=== PATIENT | male | born 1985 | race Caucasian/White ===

== ENCOUNTER 2017-03-03 12:31 | Emergency (ER) | payer MEDICARE, MEDICAID ==
[~2017-03-03] VITALS: Ht 175.3 cm; Wt 117.9 kg
[~2017-03-03 12:31] MED LIST: AMOXICILLIN 50500 MG PO; AZITHROMYCIN250 MG PO; BACLOFEN 10MG T10 MG FT; COMBIVENT INH14.7 GM IN; DARVOCET-N 1001 EACH PO; DIGOXIN0.25 MG NG; FLEXERIL10 M1 PO; FLEXERIL10 MG PO; IBU-8800 MG PO; LIDOCAINE VISC100 M1 TP; LYRICA 75 MG OR; MEDROL 4MG. DOSE4 MG PO; NEURONTIN 300M300 MG PO; PREDNISONE 20MG20 MG PO; ROXICET 325 MG500 ML PO; VICODIN 5/500 T1 TAB PO; VOLTAREN75 MG PO; ZIAC 5 MG-6.251 TAB PO
--- NOTE | 2017-03-03 12:56 | Emergency Room Report ---
History of Present Illness Time Seen by 1252 Presenting Problem in Triage Pt arrived:Walked Presenting Problem:PT REPORTS LOWER BACK PAIN X3 DAYS. PT REPORTS "PULLING" PAIN. REPORTS PAIN STARTED AFTER MOWING THE YARD. 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 N Clinical Suspician of Infection? N Mental Status: 1 - Regular (Normal Baseline) Sepsis Risk:Low Sepsis Risk Have you (or family members/close friends) recently traveled outside the [place]? N If Yes, where/when: Have you had exposure to infectious disease within the past month? N TB? Other? Specify: Comment The patient complains an acute exacerbation to chronic back pain. He has had back surgery in 2010 for stenosis and disc problems. Since then he has also had epidural injections and "had the nerves burned". He currently sees a back specialist in [place]. He says that he exacerbated his back problems by him mowing the yard over the weekend and has had increased pain since Thursday. The pain is in the upper lumbar and lower thoracic area. He has chronic leg pain which is unchanged. No new numbness or weakness either. No loss of bowel or bladder control. He says when he gets like this sometimes they have to start a steroid pack. Is on Vicoprofen at home. ALLERGIES Coded Allergies: No Known Allergies (10/23/15) Home Medications Reported Medications Bisoprolol Fumarate/Hydrochl (Ziac 5 Mg-6.25 Mg) 1 TAB PO DAILY DIGOXIN (Digox) 0.25 MG NG DAILY Albuterol-Ipratropium (Combivent Inhaler) 2 PUFFS IN TID History Medical History General CAD? No Angina: No PR: No Hypertension? Yes Hyperlipidemia? No CHF? No DVT? No PE? No COPD? No Asthma? Yes Anemia? No GERD? Yes Gastric ulcers? No GI Bleed? No Hernia? No Thyroid Problems? No Hypothyroidism? No CVA? No Seizures? No Diabetes? No Renal Insuffiency? No End Stage Renal Disease? No UTI? No Stones? No BPH? No GB Disease: Yes Nephritic Syndrome? No Asplenia? No Hepatitis? No Sickle Cell Disease? No Arthritis? No Migraines? No Cataracts? No Glaucoma? No MRSA? No HIV? No TB? No Anxiety? No Depression? No Cancer? No More? Yes Additional hx: SPINAL STENOSIS Immunization Hx DT/Tetanus < 1 YR AGO Surgical Hx Previous Surgery?Y RIGHT KNEE [facility] Social History Smoking Hx Smoker: Current Every Day Smoker Tobacco: Yes Type Cigarettes Packs/day < 1 Pack Are you/the child exposed to second-hand smoke: Yes Alcohol Alcohol: No Review of Systems All Other Systems Reviewed and Negative Constitutional denies fever Musculoskeletal back pain Psychiatric/Neurological see HPI Physical Exam Vital Signs Vital Signs Date Time Temp Pulse Resp B/P Pulse O2 O2 Flow FiO2 Ox Delivery Rate 03/03 1237 98.4 70 16 154/93 96 General Appearance normal appearance Respiratory Status No: respiratory distress. Cardiovascular normal peripheral pulses Back Lower lumbar scar. Mild tenderness of lower thoracic and upper lumbar midline. Neurologic alert, no motor/sensory deficits Reflexes Comment 1+ patella bilaterally symmetric. 0+ Achilles bilaterally symmetric. Medical Decision Making LABS/Meds/Orders Pt receiving controlled substance in ED? No Darinel was queried for this patient? Yes Reference #: [id number] Comment 5 rxs. last rx 60 vicoprofen 7.5mg on 02/16/17. Results/Orders Current Medication Orders Sig/Coral Start time Last Medication Dose Route Stop Time Status Admin Dexamethasone Sodium 8 MG ONCE ONE 03/03 1330 AC Phosphate IM 03/03 1331 Progress - 1:24 PM: I estimate there is LOW risk for ABDOMINAL AORTIC ANEURYSM, ACUTE AORTIC DISSECTION, CAUDA EQUINA SYNDROME, EPIDURAL MASS LESION, OR CORD COMPRESSION, thus I consider the discharge disposition reasonable. Departure Departure Disposition DC Home or Self Care(routine) Clinical Impression Primary Impression: Low back pain Qualifiers: Chronicity: unspecified Back pain laterality: midline Sciatica presence: without sciatica Qualified Code: M54.5 - Low back pain Condition STABLE Patient Instructions DI for Low Back Pain Additional Instructions Continue Vicoprofen for pain. Additional instructions for BACK PAIN: See your physician as soon as possible for further evaluation. Return immediately if back pain becomes intolerable, or if fever, numbness or weakness of your legs, loss of control of your bowels or bladder. Prescriptions Current Visit Scripts Methylprednisolone (Medrol Dose Kun) 4 MG PO UD #1 KUN TAKE DIRECTED ON PACKAGING ED Critical Care Critical Care No at 1320
--- NOTE | 2017-03-03 12:56 | Emergency Room Report ---
History of Present Illness Time Seen by 1252 Presenting Problem in Triage Pt arrived:Walked Presenting Problem:PT REPORTS LOWER BACK PAIN X3 DAYS. PT REPORTS "PULLING" PAIN. REPORTS PAIN STARTED AFTER MOWING THE YARD. 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 N Clinical Suspician of Infection? N Mental Status: 1 - Regular (Normal Baseline) Sepsis Risk:Low Sepsis Risk Have you (or family members/close friends) recently traveled outside the [place]? N If Yes, where/when: Have you had exposure to infectious disease within the past month? N TB? Other? Specify: Comment The patient complains an acute exacerbation to chronic back pain. He has had back surgery in 2010 for stenosis and disc problems. Since then he has also had epidural injections and "had the nerves burned". He currently sees a back specialist in [place]. He says that he exacerbated his back problems by him mowing the yard over the weekend and has had increased pain since Thursday. The pain is in the upper lumbar and lower thoracic area. He has chronic leg pain which is unchanged. No new numbness or weakness either. No loss of bowel or bladder control. He says when he gets like this sometimes they have to start a steroid pack. Is on Vicoprofen at home. ALLERGIES Coded Allergies: No Known Allergies (10/23/15) Home Medications Reported Medications Bisoprolol Fumarate/Hydrochl (Ziac 5 Mg-6.25 Mg) 1 TAB PO DAILY DIGOXIN (Digox) 0.25 MG NG DAILY Albuterol-Ipratropium (Combivent Inhaler) 2 PUFFS IN TID History Medical History General CAD? No Angina: No AL: No Hypertension? Yes Hyperlipidemia? No CHF? No DVT? No PE? No COPD? No Asthma? Yes Anemia? No GERD? Yes Gastric ulcers? No GI Bleed? No Hernia? No Thyroid Problems? No Hypothyroidism? No CVA? No Seizures? No Diabetes? No Renal Insuffiency? No End Stage Renal Disease? No UTI? No Stones? No BPH? No GB Disease: Yes Nephritic Syndrome? No Asplenia? No Hepatitis? No Sickle Cell Disease? No Arthritis? No Migraines? No Cataracts? No Glaucoma? No MRSA? No HIV? No TB? No Anxiety? No Depression? No Cancer? No More? Yes Additional hx: SPINAL STENOSIS Immunization Hx DT/Tetanus < 1 YR AGO Surgical Hx Previous Surgery?Y RIGHT KNEE [facility] Social History Smoking Hx Smoker: Current Every Day Smoker Tobacco: Yes Type Cigarettes Packs/day < 1 Pack Are you/the child exposed to second-hand smoke: Yes Alcohol Alcohol: No Review of Systems All Other Systems Reviewed and Negative Constitutional denies fever Musculoskeletal back pain Psychiatric/Neurological see HPI Physical Exam Vital Signs Vital Signs Date Time Temp Pulse Resp B/P Pulse O2 O2 Flow FiO2 Ox Delivery Rate 03/03 1237 98.4 70 16 154/93 96 General Appearance normal appearance Respiratory Status No: respiratory distress. Cardiovascular normal peripheral pulses Back Lower lumbar scar. Mild tenderness of lower thoracic and upper lumbar midline. Neurologic alert, no motor/sensory deficits Reflexes Comment 1+ patella bilaterally symmetric. 0+ Achilles bilaterally symmetric. Medical Decision Making LABS/Meds/Orders Pt receiving controlled substance in ED? No Darinel was queried for this patient? Yes Reference #: [id number] Comment 5 rxs. last rx 60 vicoprofen 7.5mg on 02/16/17. Results/Orders Current Medication Orders Sig/Coral Start time Last Medication Dose Route Stop Time Status Admin Dexamethasone Sodium 8 MG ONCE ONE 03/03 1330 AC Phosphate IM 03/03 1331 Progress - 1:24 PM: I estimate there is LOW risk for ABDOMINAL AORTIC ANEURYSM, ACUTE AORTIC DISSECTION, CAUDA EQUINA SYNDROME, EPIDURAL MASS LESION, OR CORD COMPRESSION, thus I consider the discharge disposition reasonable. Departure Departure Disposition DC Home or Self Care(routine) Clinical Impression Primary Impression: Low back pain Qualifiers: Chronicity: unspecified Back pain laterality: midline Sciatica presence: without sciatica Qualified Code: M54.5 - Low back pain Condition STABLE Patient Instructions DI for Low Back Pain Additional Instructions Continue Vicoprofen for pain. Additional instructions for BACK PAIN: See your physician as soon as possible for further evaluation. Return immediately if back pain becomes intolerable, or if fever, numbness or weakness of your legs, loss of control of your bowels or bladder. Prescriptions Current Visit Scripts Methylprednisolone (Medrol Dose Kun) 4 MG PO UD #1 KUN TAKE DIRECTED ON PACKAGING ED Critical Care Critical Care No at 1323
[2017-03-03] MEDS ORDERED: MEDROL 4MG. DOSE4 MG PO (13:25)
[2017-03-03 14:10] VITALS: BP 145/91
== END 2017-03-03 14:11 | disposition home or self-care (01) ==
LOC: ER 12:31
DX: M54.5 Low back pain (principal); I10 Essential (primary) hypertension; Z72.0 Tobacco use; K21.9 Gastro-esophageal reflux disease without esophagitis

== ENCOUNTER 2017-10-14 20:49 | Emergency (ER) | payer MEDICARE, MEDICAID ==
[~2017-10-14] VITALS: Ht 175.3 cm; Wt 108.9 kg
[2017-10-14] MEDS ORDERED: METFORMIN500 MG PO (21:06)
--- OUTSIDE RECORDS SUMMARY | 2017-10-14 21:15 | External Medical Summary Rpt | CCD ---
Author Author , FERMIN Organization [employer] Address Unknown Phone [email or web address] Care Team Providers Care Solar Crew Member Name Role Phone Clyde Lopes III, MD, Clyde Hernandez III, MD Purpose Continuity of Care Document - 12-05-2013 through 2016 Problems Code Diagnosis DOS Provider Status G47.33 OBSTRUCTIVE 01-28-2017 SLEEP APNEA (ADULT) (PEDIATRIC) 305.1 305.1 12-05-2013 [place] TOBACCO USE [facility] 401.9 401.9 [facility] 491.22 491.22 12-05-2013 [facility] BRONCHITIS WITH ACUTE BRONCHITIS 493.20 493.20 12-05-2013 [facility] ASTHMA, NOS M54.5 LOW BACK PAIN Allergies, Adverse Reactions, Alerts Type Allergy to substance Adverse Reaction to Substance Substance Reaction Severity NO KNOWN ALLERGIES Unknown Unknown Medications Na ND Rx Da Fi Fi Am Da Di Ph RX Ph St me C No te ll ll ou ys ag ar # ys at rm s nt no ma ic us Or Da si cy ia de te s n re d IP 00 01 0 No RA 48 -1 T- 70 3- Lo AL 20 20 ng BU 10 14 er T 1 0. Ac 5- ti 3( ve 2. 5) MG /3 ML Vital Signs 12-05-2013 17:46 Name Value Interpretat Reference Comment ion Range Body 98.4 [degF] Temperature BP 72 mm[Hg] Diastolic BP Systolic 128 mm[Hg] Heart 101 /min Rate/Pulse O2% 97 % Respiratory 20 /min Rate 12-05-2013 17:44 Name Value Interpretat Reference Comment ion Range Body 98.4 [degF] Temperature BP 72 mm[Hg] Diastolic BP Systolic 128 mm[Hg] Heart 101 /min Rate/Pulse Respiratory 20 /min Rate 12-05-2013 15:41 Name Value Interpretat Reference Comment ion Range O2% 96 % Encounters Encounter Start End Date Code Location Performer Type Date Emergency LAUREN Hernandez (ER) 4 15:54 4 17:46 [facility] Clyde Garcia
--- OUTSIDE RECORDS SUMMARY | 2017-10-14 21:15 | External Medical Summary Rpt | CCD ---
Demographics Preferred Language Cameroonian Marital Status Unknown Scientologist Affiliation Unknown Race Unknown Ethnic Group Unknown Author Author VIJAYA Address Unknown Phone [email or web address] Purpose Continuity of Care Document - through 2016
--- OUTSIDE RECORDS SUMMARY | 2017-10-14 21:15 | External Medical Summary Rpt | CCD ---
Author Author , FERMIN Organization [employer] Address Unknown Phone [email or web address] Care Team Providers Care Macadam Raker Name Role Phone Clyde Lopes III, MD, Clyde Hernandez III, MD Purpose Continuity of Care Document - 12-05-2013 through 2016 Problems Code Diagnosis DOS Provider Status G47.33 OBSTRUCTIVE 01-28-2017 SLEEP APNEA (ADULT) (PEDIATRIC) 305.1 305.1 12-05-2013 [place] TOBACCO USE [facility] 401.9 401.9 [facility] 491.22 491.22 12-05-2013 [facility] BRONCHITIS WITH ACUTE BRONCHITIS 493.20 493.20 12-05-2013 [facility] ASTHMA, NOS M54.5 LOW BACK PAIN [...] LAUREN Hernandez (ER) 4 15:54 4 17:46 [facility] Clyde Garcia
--- OUTSIDE RECORDS SUMMARY | 2017-10-14 21:15 | External Medical Summary Rpt | CCD ---
Demographics Preferred Language [place] Islander Marital Status Unknown Judaism Affiliation Unknown Race Unknown Ethnic Group Unknown Author Author VIJAYA Address Unknown Phone [email or web address] Purpose Continuity of Care Document - through 2016
--- OUTSIDE RECORDS SUMMARY | 2017-10-14 21:16 | External Medical Summary Rpt | CCD ---
Demographics Preferred Language Maldivian Marital Status Unknown Religion Affiliation Unknown Race Unknown Ethnic Group Unknown Author Author , VIJAYA CHRISTENSEN Address Unknown Phone Immunization Unable to retrieve immunization data due to connection failure with Immunization Registry. Please try again later.
--- OUTSIDE RECORDS SUMMARY | 2017-10-14 21:16 | External Medical Summary Rpt | CCD ---
Demographics Preferred Language Guatemalan Marital Status Unknown Restorationism Affiliation Unknown Race Unknown Ethnic Group Unknown Author Author , VIJAYA CHRISTENSEN Address Unknown Phone Immunization Unable to retrieve immunization data due to connection failure with Immunization Registry. Please try again later.
--- OUTSIDE RECORDS SUMMARY | 2017-10-14 21:17 | External Medical Summary Rpt ---
Author Author FERMIN Juarez, FERMIN Juarez Organization [employer] Address Unknown Phone Unavailable
--- NOTE | 2017-10-14 21:47 | RADIOLOGY REPORT PS360 ---
CT CERVICAL SPINE W/O CONT INDICATION: Neck pain following injury FELL AT HOME ORDERING PHYSICIAN: Ady Hodgson MD PATIENT AGE: 32 years COMPARISON: None TECHNIQUE: Axial images are obtained without contrast. Sagittal and coronal reformatted images are reviewed as well. FINDINGS: There is normal alignment. No cervical spine fracture or dislocation is evident. No prevertebral soft tissue swelling. Scattered small nodes are present in that. The lung apices are clear. Marily graph there is some minor fragmentation along the medial aspect of the head of the clavicle on the right superiorly consistent with an avulsion fracture age indeterminate. IMPRESSION: 1. No acute cervical spine fracture. 2. Small avulsion fracture of the head of the clavicle on the right age-indeterminate
--- NOTE | 2017-10-14 22:47 | Emergency Room Report ---
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 N Clinical Suspician of Infection? N Mental Status: 1 - Regular (Normal Baseline) Sepsis Risk:Low Sepsis Risk Have you (or family members/close friends) recently traveled outside the [place]? N If Yes, where/when: Have you had exposure to infectious disease within the past month? N TB? Other? Specify: Source patient, RN notes reviewed, family, old records Exam Limitations no limitations Comment slipped in bathroon this am and hit head with loc and hull Cardiac Chest Pain Chest pain indicative of cardiac No Timing/Duration this evening Severity moderate ALLERGIES Coded Allergies: No Known Allergies (10/23/15) Home Medications Reported Medications Bisoprolol Fumarate/Hydrochl (Ziac 5 Mg-6.25 Mg) 1 TAB PO DAILY DIGOXIN (Digox) 0.25 MG NG DAILY Albuterol-Ipratropium (Combivent Inhaler) 2 PUFFS IN TID Metformin HCL (Metformin) 500 MG PO BID History Medical History General CAD? No Angina: No AR: No Hypertension? Yes Hyperlipidemia? No CHF? No DVT? No PE? No COPD? No Asthma? Yes Anemia? No GERD? Yes Gastric ulcers? No GI Bleed? No Hernia? No Thyroid Problems? No Hypothyroidism? No CVA? No Seizures? No Diabetes? Yes Insulin Dependent: No Insulin Pump: No Home FSBS? No Renal Insuffiency? No End Stage Renal Disease? No UTI? No Stones? No BPH? No GB Disease: Yes Nephritic Syndrome? No Asplenia? No Hepatitis? No Sickle Cell Disease? No Arthritis? No Migraines? No Cataracts? No Glaucoma? No MRSA? No HIV? No TB? No Anxiety? No Depression? No Cancer? No More? Yes Additional hx: SPINAL STENOSIS Immunization Hx DT/Tetanus < 1 YR AGO Surgical Hx Previous Surgery?Y RIGHT KNEE SURGERY [facility] 12/03 [facility] 2010 Social History Smoking Hx Smoker: Current Every Day Smoker Tobacco: Yes Type Cigars Packs/day < 1 Pack Alcohol Alcohol: No Drugs none Review of Systems All Other Systems Reviewed and Negative Constitutional denies fever Eyes denies drainage ENT denies: ear discharge, nose discharge. Respiratory denies cough Cardiovascular denies palpitations Gastrointestinal denies diarrhea, denies vomiting Genitourinary denies: frequency. Musculoskeletal see HPI, denies joint swelling, neck pain Skin denies rash Psychiatric/Neurological see HPI, headache, denies seizure, other Physical Exam Vital Signs Vital Signs Date Time Temp Pulse Resp B/P Pulse O2 O2 Flow FiO2 Ox Delivery Rate 10/14 2238 97.8 91 18 165/87 96 10/14 2056 97.9 91 18 154/98 98 - WBC >12,000 or <4,000 or 10% bands? 2 or more SIRS Criteria Met? B/P: MAP:116 Creatinine >2.0? UA output<0.5ml/kg/hr for 2 hrs? Platelet count >100,000? Lactate >2.0mmol/1? INR >1.2 or PTT > than 60 sec? Evidence of Organ Dysfunction? Provider documented clinical suspician of infection? N Sepsis Criteria Count: 1 Sepsis Risk: Low Sepsis Risk General Appearance no apparent distress Eye Exam - bilateral eye PERRL, bilateral eye EOMI Ear, Nose, Throat normal ENT inspection Neck tender lateral Respiratory Status No: respiratory distress. Lung Sounds bilateral: lungs clear. 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 No Results/Orders Orders Procedure Date/time Status DIET-NOTHING BY MOUTH 10/[address] HEAD REQ 10/[address] HEAD W/O CONTRAST 10/[address] SCAN REQ 10/14 2112 Complete XRAY/CT/US XRAY/CT/US CT head, C-spine CT interpretation by discussed w/radiologist Time results known: 2245 CT Results no fracture seen Departure Departure Time of Disposition 2242 Disposition DC Home or Self Care(routine) Clinical Impression Primary Impression: Head contusion Qualifiers: Encounter type: initial encounter Contusion of head detail: unspecified part of head Qualified Code: S00.93XA - Contusion of unspecified part of head, initial encounter Secondary Impressions: Cervical strain, acute Qualifiers: Encounter type: initial encounter Qualified Code: S16.1XXA - Strain of muscle, fascia and tendon at neck level, initial encounter Condition STABLE Referrals Tamir Anton MD (Family) Patient Instructions DI for Concussion Additional Instructions see pcp as needed Discharge Counseling Counseled pt/family regarding diagnosis, test results, follow up needs ED Critical Care Critical Care No at 4465
[2017-10-14 22:59] VITALS: BP 165/87
--- NOTE | 2017-10-15 06:25 | RADIOLOGY REPORT PS360 ---
CT HEAD W/O CONTRAST HISTORY: Headache/pain following injury FELL AT HOME ORDERING PHYSICIAN: Ady Hodgson MD PATIENT AGE: 32 years COMPARISON: None TECHNIQUE: Axial images obtained without contrast. Brain and bone windows reviewed. FINDINGS: No midline shift, mass effect, intracranial hemorrhage, hydrocephalus, or extra-axial fluid collection is evident. Soft tissue thickening is noted in the right vertex consistent with contusion/laceration. No underlying calvarial fracture. The calvarium has an unremarkable appearance. No mastoid effusion. The visualized paranasal sinuses are unremarkable. IMPRESSION: 1. No acute intracranial findings. 2. Right vertex scalp contusion.
== END 2017-10-14 23:00 | disposition home or self-care (01) ==
LOC: ER 20:49
DX: S00.93XA Contusion of unspecified part of head, initial encounter (principal); S16.1XXA Strain of muscle, fascia and tendon at neck level, initial encounter; W01.0XXA Fall on same level from slipping, tripping and stumbling without subsequent striking against object, initial encounter; Y92.012 Bathroom of single-family (private) house as the place of occurrence of the external cause; I10 Essential (primary) hypertension; J45.909 Unspecified asthma, uncomplicated; K21.9 Gastro-esophageal reflux disease without esophagitis; E11.9 Type 2 diabetes mellitus without complications

== ENCOUNTER 2017-10-18 16:58 | Emergency (ER) | payer MEDICARE, MEDICAID ==
[~2017-10-18] VITALS: Ht 175.3 cm; Wt 113.4 kg
[~2017-10-18 16:58] MED LIST changes: +METFORMIN500 MG PO
--- OUTSIDE RECORDS SUMMARY | 2017-10-18 17:07 | External Medical Summary Rpt | CCD ---
Author Author , VIJAYA CHRISTENSEN Address Unknown Phone [email or web address] Immunization Name Date Rout CVX Reac Dose Comm Prov Is Faci e tion ent ider Refu lity Give sed n Infl 10-0 0.5 Hist PD20 No PD20 uenz 9-20 mL oric 255 255 a 17 al Quad Info rmat W/Pr ion es - Sour ce Unsp ecif ied Hep 08-2 42 999 Hist H149 No H149 B, 6-19 oric adol 96 al Info High rmat Ris ion - Sour ce Unsp ecif ied Hep 07-2 42 999 Hist H149 No H149 B, 4-19 oric adol 96 al Info High rmat Ris ion - Sour ce Unsp ecif ied MMR 07-2 Intr 3 999 Hist H149 No H149 4-19 amus oric 96 cula al r Info rmat ion - Sour ce Unsp ecif ied
--- OUTSIDE RECORDS SUMMARY | 2017-10-18 17:07 | External Medical Summary Rpt | CCD ---
Author Author , FERMIN Organization [employer] Address Unknown Phone [email or web address] Care Team Providers Care Saw Handle Assembler Name Role Phone Clyde Lopes III, MD, Clyde Hernandez III, MD Purpose Continuity of Care Document - 12-05-2013 through 2016 Problems Code Diagnosis DOS Provider Status G47.33 OBSTRUCTIVE 01-28-2017 SLEEP APNEA (ADULT) (PEDIATRIC) 305.1 305.1 12-05-2013 [place] TOBACCO USE [facility] 401.9 401.9 12-05-2013 [place] HYPERTENSIO [facility] NOS Hospital 491.22 491.22 12-05-2013 [facility] BRONCHITIS WITH ACUTE BRONCHITIS 493.20 493.20 12-05-2013 [facility] ASTHMA, NOS M48.061 SPINAL STENOSIS, LUMBAR REGION WITHOUT NEUROGENIC NICHOLE M50.90 CERVICAL DISC DISORDER, UNSP, UNSPECIFIED CERVICAL REGION M51.16 INTERVERTEB RAL DISC DISORDERS W RADICULOPAT HY, LUMBAR REGION M54.5 LOW BACK PAIN S00.93XA CONTUSION OF UNSPECIFIED PART OF HEAD, INITIAL ENCOUNTER S16.1XXA STRAIN OF MUSCLE, FASCIA AND TENDON AT NECK LEVEL, INIT Allergies, Adverse Reactions, Alerts Type Allergy to [...] LAUREN Hernandez (ER) 4 15:54 4 17:46 [facility] Clyde Garcia
--- OUTSIDE RECORDS SUMMARY | 2017-10-18 17:07 | External Medical Summary Rpt | CCD ---
Author Author , VIJAYA CHRISTENSEN Address Unknown Phone [email or web address] Immunization Name Date Rout CVX Reac Dose [...]
--- OUTSIDE RECORDS SUMMARY | 2017-10-18 17:07 | External Medical Summary Rpt | CCD ---
Demographics Preferred Language Eritrean Marital Status Unknown Confucianist Affiliation Unknown Race Unknown Ethnic Group Unknown Author Author VIJAYA Address Unknown Phone [email or web address] Purpose Continuity of Care Document - through 2016
--- OUTSIDE RECORDS SUMMARY | 2017-10-18 17:07 | External Medical Summary Rpt | CCD ---
Author Author , FERMIN Organization [employer] Address Unknown Phone [email or web address] Care Team Providers Care Sausage Cutter Name Role Phone Clyde Lopes III, MD, Clyde Hernandez III, MD Purpose Continuity of Care Document - 12-05-2013 through 2016 Problems Code Diagnosis DOS Provider Status G47.33 OBSTRUCTIVE 01-28-2017 SLEEP APNEA (ADULT) (PEDIATRIC) 305.1 305.1 12-05-2013 [place] TOBACCO USE [facility] 401.9 401.9 12-05-2013 [place] HYPERTENSIO [facility] NOS Hospital 491.22 491.22 12-05-2013 [facility] BRONCHITIS WITH ACUTE BRONCHITIS 493.20 493.20 12-05-2013 [facility] ASTHMA, NOS M48.061 SPINAL STENOSIS, LUMBAR [...] LAUREN Hernandez (ER) 4 15:54 4 17:46 [facility] Clyde Garcia
--- OUTSIDE RECORDS SUMMARY | 2017-10-18 17:07 | External Medical Summary Rpt | CCD ---
Demographics Preferred Language Belgian Marital Status Unknown Buddhism Affiliation Unknown Race Unknown Ethnic Group Unknown Author Author VIJAYA Address Unknown Phone [email or web address] Purpose Continuity of Care Document - through 2016
--- NOTE | 2017-10-18 17:24 | Urgent Treatment Center Report ---
History of Present Issue Date/Time Seen by Provider 10/18/17 2533 Visit Reason Pt arrived:Walked Presenting Problem:PT C/O LOWER BACK PAIN THAT GOES DOWN INTO HIS RIGHT LEG. ADVISES HE FELL ON THURSDAY IN THE BATHROOM. ALSO HAS A HX OF SPINAL STENOSIS Location if Accident: Onset of symptoms date/time:/ or onset unknown for:MEDICAL HX UNKNOWN Have you (or family members/close friends) recently traveled outside the [place]? N If Yes, where/when: Have you had exposure to infectious disease within the past month? TB? Other? Specify: c/o flare of chronic low back pain new today. PMHx of spinal stenosis and unknown lumbar surgery. Can't recall then but "years ago". Hasn't recently seen NS "because no need to" however his retired in Spring 2016 so he doesn't know if her office would continue to see him or not. PCP Sloane. Denies chronic pain meds or being a patient of a pain management practice. Reports he fell 4:30am Thursday (4 days ago). Got up to use restroom and slid on wet floor. Blacked out and didn't remember anything for some time later. Came to ER. Reports dx w/ concussion. No pain at that time so other than head, denies having any other imaging done. Worsening pain started this morning. Lower back with right LE weakness and tingling. hx of both LE doing this in the past and right is typically always worse then left. Pain 8/10. Hasn't taken anything to help today and other than repositioning frequently, hasn't tried anything else. Pain worse in any position too long and better w/ brief movement. Denies difficulty urinating, passing stool, incontinence or LE weakness more then his typical. Source patient Exam Limitations no limitations ALLERGIES Coded Allergies: No Known Allergies (10/23/15) Home Medications Reported Medications Bisoprolol Fumarate/Hydrochl (Ziac 5 Mg-6.25 Mg) 1 TAB PO DAILY DIGOXIN (Digox) 0.25 MG NG DAILY Albuterol-Ipratropium (Combivent Inhaler) 2 PUFFS IN TID Metformin HCL (Metformin) 500 MG PO BID History Medical History General CAD? No Angina: No [place]: No Hypertension? Yes Hyperlipidemia? No CHF? No DVT? No PE? No COPD? No Asthma? Yes Anemia? No GERD? Yes Gastric ulcers? No GI Bleed? No Hernia? No Thyroid Problems? No Hypothyroidism? No CVA? No Seizures? No Diabetes? Yes Insulin Dependent: No Insulin Pump: No Home FSBS? No Renal Insuffiency? No UTI? No Stones? No BPH? No GB Disease: Yes Nephritic Syndrome? No Asplenia? No Hepatitis? No Sickle Cell Disease? No Arthritis? No Migraines? No Cataracts? No Glaucoma? No MRSA? No HIV? No TB? No Anxiety? No Depression? No Cancer? No More? Yes Additional hx: SPINAL STENOSIS Immunization HX DT/Tetanus < 1 YR AGO Surgical Hx Previous Surgery?Y RIGHT KNEE SURGERY [facility]GERY [facility] 12/03 TONSILS 2010 Social History Smoking Hx Smoker: Never Smoker Tobacco: No Packs/day < 1 Pack Alcohol Alcohol: No Review of Systems All Other Systems Reviewed and Negative (as appropriate for CC) Constitutional denies fever, denies malaise Respiratory denies shortness of breath Gastrointestinal denies abdominal pain Genitourinary see HPI. Musculoskeletal see HPI Skin denies change in color, denies lesions, denies lumps Psychiatric/Neurological see HPI, denies headache Physical Exam Vital Signs Vital Signs Date Time Temp Pulse Resp B/P Pulse O2 O2 Flow FiO2 Ox Delivery Rate 10/18 1900 98.0 98 16 140/90 98 10/18 1750 16 10/18 1717 98.0 98 16 140/90 98 General Appearance mild distress (slow to change positions) Neck normal inspection, non-tender, supple, full range of motion Respiratory Status No: respiratory distress. Cardiovascular no peripheral edema Back normal inspection, bowel/bladder continent, gait abnormality (slow, shuffled, favors rt), strt leg raising(L)-NML, strt leg raising(R)-NML, vertebral tenderness (mid lumber, mild, no guarding), no lumbar region tenderness, mild right SI joint tenderness , slightly limited spinal rotation left and right, extension & lateral bending; most limited in spinal flexion due to pain Extremities non-tender (BLE), normal range of motion (BLE) Strength 5 Lower Ext (L), 5 Lower Ext (R) Neurologic alert, no motor/sensory deficits, oriented x 3 Reflexes DTR 2+ knee (R), 2+ knee (L) Skin intact, normal color, warm/dry Medical Decision Making LABS/Meds/Orders Pt receiving controlled substance in ED? No Results/Orders Current Medication Orders Sig/Coral Start time Last Medication Dose Route Stop Time Status Admin Ketorolac 60 MG ONCE ONE 10/18 1745 DC 10/18 Tromethamine IM 10/18 Ketorolac 0 .STK-MED ONE 10/18 1745 DC Tromethamine .ROUTE Orphenadrine Citrate 60 MG ONCE ONE 10/18 1745 DC 10/18 IM 10/18 Orphenadrine Citrate 0 .STK-MED ONE 10/18 1745 DC .ROUTE Orders Procedure Date/time Status LUMBAR SPINE 5 VIEWS 10/18 1738 Active XRAY/CT/US XRAY/CT/US XRAY L-spine XR interpretation by reviewed by me (w/ Dr. Johnny SANTIAGO MD) Xray Results retrolethesis and spinal straightening. Compared to a prior MRI 2 years ago (no prior xrays). retrolethesis at that time but unable to determine if better/worse. Dr. Turner says pt needs to follow up with PCP tomorrow Departure Departure Time of Disposition 1850 Disposition DC Home or Self Care(routine) Clinical Impression Primary Impression: Acute exacerbation of chronic low back pain Secondary Impressions: Fall Qualifiers: Encounter type: initial encounter Qualified Code: W19.XXXA - Unspecified fall, initial encounter Condition STABLE Referrals Sloane DUDLEY,Tamir (Family) Call in the morning and schedule a follow up appointment as a repeat MRI may be necessary if pain persist. In the meantime, if symptoms worsen, you can't urinate or have BM, having trouble controlling urine or bowels of the leg weakness or numbness suddenly worsen, follow up immediately Patient Instructions DI for Low Back Pain Additional Instructions * naproxen every 12 hours with meal as needed for pain/inflammation. * Remember you had a toradol shot, similiar anti-inflammatory in clinic * No additional anti-inflammatories like motrin, aleve, advil with the above amount of ibuprofen. You CAN still take Tylenol every 4 hours as needed if you need something more for pain. * Ice x15-20 mins 3-4 times a day for first 48 hours after the initial injury followed by moist heat x15-20 mins 3-4 times a day to affected area * Muscle relaxer every 8 hours as needed for muscle spasms but remember, it WILL cause drowsiness. You can NOT take it and drive, operate machinary or care for small children * Remember you had a muscle relaxer shot in clinic. Do not take flexeril for at least 8 hours. * Keep this area active. No movement leads to more stiffness. However, take it easy too and avoid heavy lifting, pushing, pulling. Discharge Counseling Counseled pt/family regarding diagnosis, test results, medications/RX, home care, follow up needs Prescriptions Current Visit Scripts NAPROXEN (NAPROSYN 500MG TAB) 500 MG PO BID #14 TAB take with food Cyclobenzaprine Hcl (Flexeril) 0.5-1 TAB PO TIDP PRN muscle spasm #9 TAB will cause drowsiness at 1268
[2017-10-18] MEDS ORDERED: FLEXERIL10 MG PO (18:56)
[2017-10-18] MEDS ORDERED: NAPROSYN 500MG500 MG PO (18:56)
[2017-10-18 19:00] VITALS: BP 140/90
--- NOTE | 2017-10-18 22:13 | RADIOLOGY REPORT PS360 ---
LUMBAR SPINE 5 VIEWS Ordering Physician: YAZ RIDER APRN Patient Age: 32 years: Male HISTORY: hx spinal stenosis unknown lumbar surg, fall 10/14, pain TECHNIQUE: 5 view lumbar spine series. COMPARISON :CT lumbar spine 03/02/2015 also MRI March 15, 2015 FINDINGS Lumbar vertebral bodies are intact. . No acute fractures or subluxation. The patient is undergone a laminectomy at L5/S1. Resection of the spinous process at L5 and inferior L4 spinous process noted. There is mild disc space narrowing L4/5 with slight retrolisthesis L4 on 5. The latter feature is very slightly more evident today than previous 2015 studies. borderline disc space narrowing L5/S1 again observed similar to prior studies. There is also borderline disc narrowing L1/2. Basically stable. But no osseous lesions. The sacrum and coccyx unremarkable lateral view. No pars defect.. Mild degenerative facet changes L4/5 L5/S1. IMPRESSION: No acute findings. No prominent new findings . Previous laminectomy posterior L5 from L4/5 -L5/S1 level. Stable minimal disc space narrowing at both levels.... Scant retrolisthesis L4/5 may be slightly more apparent than 2015 CT but unimpressive.. Mild degenerative facet changes lower 2 levels also noted
== END 2017-10-18 19:01 | disposition home or self-care (01) ==
LOC: UTC 16:58
DX: M54.5 Low back pain (principal); G89.4 Chronic pain syndrome; W01.0XXA Fall on same level from slipping, tripping and stumbling without subsequent striking against object, initial encounter; Y92.012 Bathroom of single-family (private) house as the place of occurrence of the external cause

== ENCOUNTER → 2017-10-28 | Outpatient (CLI) | payer MEDICARE, MEDICAID ==
[~2017-10-28] MED LIST changes: +NAPROSYN 500MG500 MG PO
[2017-10-28 12:42] LABS: BUN 16 mg/dL (7-18)
[2017-10-28 12:43] LABS: GFR (ESTIMATED) 97 ML/MIN (>60)
== END ==
LOC: LAB 10:50
PROVIDERS: Internal Medicine Adolescent Medicine
DX: M54.41 Lumbago with sciatica, right side (principal); Z79.899 Other long term (current) drug therapy

== ENCOUNTER 2017-11-04 23:28 | Emergency (ER) | payer MEDICARE, MEDICAID ==
[~2017-11-04] VITALS: Ht 175.3 cm; Wt 113.4 kg
[2017-11-04] MEDS ORDERED: NEURONTIN 300M300 MG PO (23:42)
--- OUTSIDE RECORDS SUMMARY | 2017-11-04 23:44 | External Medical Summary Rpt ---
Author Author FERMIN Juarez, [employer] Organization [employer] Address Unknown Phone Unavailable Results Comprehensive metabolic 2000 panel in Serum or Plasma Observa Value Referen Units Interpr Notes Date tion ce etation Range Albumin/G 1.1 - 1.8 No Normal No Oct 28 lobulin informati informati 2017 [Mass on in on in 10:51 AM ratio] in source source Serum or data data Plasma Albumin 3.4 - 5.0 gm/dL Normal No Oct 28 [Mass/vol informati 2016 ume] in on in 10:51 AM Serum or source Plasma data Alkaline 46 - 116 U/L High No Oct 28 phosphata informati 2017 se on in 10:51 AM [Enzymati source c data activity/ volume] in Serum or Plasma Bilirubin 0.2 - 1.0 mg/dL Normal No Oct 28 .total informati 2016 [Mass/vol on in 10:51 AM ume] in source Serum or data Plasma Urea 7 - 18 mg/dL Normal No Oct 28 nitrogen informati 2017 [Mass/vol on in 10:51 AM ume] in source Serum or data Plasma Calcium 8.5 - mg/dL Normal No Oct 28 [Mass/vol 10.1 informati 2016 ume] in on in 10:51 AM Serum or source Plasma data Chloride 98 - 107 mmoL/L Normal No Oct 28 [Moles/vo informati 2016 lume] in on in 10:51 AM Serum or source Plasma data Carbon 21.0 - mmoL/L Normal No Oct 28 dioxide, 32.0 informati 2017 total on in 10:51 AM [Moles/vo source lume] in data Serum or Plasma Creatinin 0.70 - mg/dL Normal No Oct 28 e 1.30 informati 2017 [Mass/vol on in 10:51 AM ume] in source Serum or data Plasma Estimated >60 ML/MIN No REFERENCE Dec informati RANGE: 2017 glomerula on in >60 10:51 AM r source ML/MIN/1. filtratio data 73 SQUARE n rate METERSIf (GF this patient is -A merican, then multiply theresult by 1.210. Globulin 1.3 - 3.2 gm/dL Normal No Oct 28 [Mass/vol informati 2016 ume] in on in 10:51 AM Serum source data Glucose 74 - 106 mg/dL High No Oct 28 [Mass/vol informati 2016 ume] in on in 10:51 AM Serum or source Plasma data Potassium 3.5 - 5.1 mmoL/L Normal No Oct 282016 [Moles/vo on in 10:51 AM lume] in source Serum or data Plasma Sodium 136 - 145 mmoL/L Normal No Oct 28 [Moles/vo informati 2016 lume] in on in 10:51 AM Serum or source Plasma data Aspartate 15 - 37 U/L Normal No Oct 282016 aminotran on in 10:51 AM sferase source [Enzymati data c activity/ volume] in Serum or Plasma Alanine 12 - 78 U/L Normal No Oct 28 aminotran 2016 sferase on in 10:51 AM [Enzymati source c data activity/ volume] in Serum or Plasma Protein 6.4 - 8.2 gm/dL Normal No Oct 28 [Mass/vol informati 2016 ume] in on in 10:51 AM Serum or source Plasma data Hemoglobin A1c in Blood Observa Value Referen Units Interpr Notes Date tion ce etation Range Hemoglo 6.5 0.0 - % Normal < 6% Oct 28 bin A1c 7.0 NON-KASSANDRA 2016 in BETIC 10:51 Blood LEVEL< AM 7% CONTROL LED DIABETI C LEVEL> 8% POORLY CONTROL LED DIABETI C LEVEL
--- OUTSIDE RECORDS SUMMARY | 2017-11-04 23:44 | External Medical Summary Rpt | CCD ---
Author Author , VIJAYA CHRISTENSEN Address Unknown Phone .[employer] Immunization Name Date Rout CVX Reac Dose [...]
--- OUTSIDE RECORDS SUMMARY | 2017-11-04 23:44 | External Medical Summary Rpt | CCD ---
Author Author [employer] Organization [employer] Address Unknown Phone Unavailable Purpose Continuity of Care Document - through 2016
--- OUTSIDE RECORDS SUMMARY | 2017-11-04 23:44 | External Medical Summary Rpt | CCD ---
Author Author , VIJAYA CHRISTENSEN Address Unknown Phone [email or web address] Immunization Name Date Rout CVX Reac Dose [...]
--- OUTSIDE RECORDS SUMMARY | 2017-11-04 23:44 | External Medical Summary Rpt | CCD ---
Author Author , FERMIN Organization [employer] Address Unknown Phone [email or web address] Care Team Providers Care Registered Appraiser Name Role Phone Clyde Lopes III, MD, Clyde Hernandez III, MD Purpose Continuity of Care Document - 12-05-2013 through 2016 Problems Code Diagnosis DOS Provider Status G47.33 OBSTRUCTIVE 01-28-2017 SLEEP APNEA (ADULT) (PEDIATRIC) 305.1 305.1 12-05-2013 [place] TOBACCO USE [facility] 401.9 401.9 12-05-2013 [place] HYPERTENSIO [facility] 491.22 491.22 12-05-2013 [facility] BRONCHITIS WITH ACUTE BRONCHITIS 493.20 493.20 12-05-2013 [facility] ASTHMA, NOS E11.9 TYPE 2 DIABETES MELLITUS WITHOUT COMPLICATIO NS M48.061 SPINAL STENOSIS, LUMBAR REGION WITHOUT NEUROGENIC [...] Reference Comment ion Range O2% 96 % Results Labs Lab Lab Date Result Refere Interp Status Commen Order Detail nces retati t Range on Hemoglobin A1c measurement (10-28-2017 10:51) Hemoglo 6.5 % 0.0-7.0 complet bin A1c 017 ed 10:51 Comprehensive metabolic panel (10-28-2017 10:51) Serum = 1.5 1.1-1.8 complet or 017 ed plasma 10:51 albumin /globul in mass ra Serum = 4.6 3.4-5.0 complet or 017 gm/dL ed plasma 10:51 albumin measure ment (mas Serum = 117 46-116 complet or 017 U/L ed plasma 10:51 alkalin e phospha tase sawyer Serum = 0.7 0.2-1.0 complet or 017 mg/dL ed plasma 10:51 total bilirub in measure m Serum = 16 7-18 complet or 017 mg/dL ed plasma 10:51 urea nitroge n measure men Serum = 9.9 8.5-10. complet or 017 mg/dL 1 ed plasma 10:51 calcium measure ment (mas Serum = 104 98-107 complet or 017 mmoL/L ed plasma 10:51 chlorid e measure ment (mo Carbon = 27 21.0-32 complet dioxide 017 mmoL/L .0 ed 10:51 measure ment Serum = 0.9 0.70-1. complet or 017 mg/dL 30 ed plasma 10:51 creatin ine measure ment ( Estimat = 97 >60 complet ed 017 ML/MIN ed glomeru 10:51 lar filtrat ion rate (GF Serum = 3.1 1.3-3.2 complet globuli 017 gm/dL ed n 10:51 measure ment (mass/v olume) Serum = 109 74-106 complet or 017 mg/dL ed plasma 10:51 glucose measure ment (mas Serum = 4.7 3.5-5.1 complet potassi 017 mmoL/L ed um 10:51 measure ment Serum = 140 136-145 complet sodium 017 mmoL/L ed measure 10:51 ment Serum = 35 15-37 complet or 017 U/L ed plasma 10:51 asparta te aminotr ansfera ALT = 56 12-78 complet (SGPT) 017 U/L ed ser/aimee 10:51 s Protein = 7.7 6.4-8.2 complet total 017 gm/dL ed ser/aimee 10:51 s Hemoglobin A1c in Blood (10-28-2017 10:51) Hemoglo 6.5 % 0.0% Normal complet bin A1c 017 - ed in 10:51 7.0% Blood Encounters Encounter Start End Date Code Location Performer Type Date Emergency LAUREN Hernandez (ER) 4 15:54 4 17:46 [facility] Clyde Garcia
--- OUTSIDE RECORDS SUMMARY | 2017-11-04 23:44 | External Medical Summary Rpt | CCD ---
Author Author , FERMIN Organization [employer] Address Unknown Phone [email or web address] Care Team Providers Care Tobacco Scrap Sifter Name Role Phone Clyde Lopes III, MD, Clyde Hernandez III, MD Purpose Continuity of Care Document - 12-05-2013 through 2016 Problems Code Diagnosis DOS Provider Status G47.33 OBSTRUCTIVE 01-28-2017 SLEEP APNEA (ADULT) (PEDIATRIC) 305.1 305.1 12-05-[address] [place] [address] USE [facility] 401.9 401.9 12-05-2013 [place] HYPERTENSIO [facility] 491.22 491.22 12-05-2013 [facility] BRONCHITIS WITH ACUTE BRONCHITIS 493.20 493.20 12-05-2013 [facility] ASTHMA, NOS E11.9 TYPE 2 [...] LAUREN Hernandez (ER) 4 15:54 4 17:[address] [facility] Clyde Garcia
--- NOTE | 2017-11-04 23:53 | Emergency Room Report ---
History of Present Illness Time Seen by [id number] Presenting Problem in Triage Pt arrived:Walked Presenting Problem:C/O RIGHT HIP AND LEG PAIN FOR 2 DAYS. HX SPINAL STENOSIS. 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 N Clinical Suspician of Infection? N Mental Status: 1 - Regular (Normal Baseline) Sepsis Risk:Possible Sepsis Risk Have you (or family members/close friends) recently traveled outside the [place]? N If Yes, where/when: Have you had exposure to infectious disease within the past month? N TB? Other? Specify: Source patient, RN notes reviewed, family, old records Exam Limitations no limitations Comment pt with progressive rt lumbar pain to lat foot which has progressed over the last 2 weeks with no new trauma, no fever. no rash or cauda equina sx- he has been seen by surg and pcp and [facility] Cardiac Chest Pain Chest pain indicative of cardiac No Timing/Duration this evening Severity moderate ALLERGIES Coded Allergies: No Known Allergies (10/23/15) Home Medications Active Scripts Cyclobenzaprine Hcl (Flexeril) 0.5-1 TAB PO TIDP PRN muscle spasm #9 TAB Prov: 10/18/17 Reported Medications Bisoprolol Fumarate/Hydrochl (Ziac 5 Mg-6.25 Mg) 1 TAB PO DAILY DIGOXIN (Digox) 0.25 MG NG DAILY Albuterol-Ipratropium (Combivent Inhaler) 2 PUFFS IN TID Metformin HCL (Metformin) 500 MG PO BID Gabapentin (Neurontin 300MG) 300 MG PO BID PRN PAIN History Medical History General CAD? No Angina: No [place]: No Hypertension? Yes Hyperlipidemia? No CHF? No DVT? No PE? No COPD? No Asthma? Yes Anemia? No GERD? Yes Gastric ulcers? No GI Bleed? No Hernia? No Thyroid Problems? No Hypothyroidism? No CVA? No Seizures? No Diabetes? Yes Insulin Dependent: No Insulin Pump: No Home FSBS? No Renal Insuffiency? No End Stage Renal Disease? No UTI? No Stones? No BPH? No GB Disease: Yes Nephritic Syndrome? No Asplenia? No Hepatitis? No Sickle Cell Disease? No Arthritis? No Migraines? No Cataracts? No Glaucoma? No MRSA? No HIV? No TB? No Anxiety? No Depression? No Cancer? No More? Yes Additional hx: SPINAL STENOSIS Immunization Hx DT/Tetanus < 1 YR AGO Surgical Hx Previous Surgery?Y RIGHT KNEE SURGERY [facility] 12/03 TONSILS 2010 Social History Smoking Hx Smoker: Current Every Day Smoker Tobacco: Yes Type Cigarettes Packs/day < 1 Pack Alcohol Alcohol: No Drugs none Review of Systems All Other Systems Reviewed and Negative Constitutional denies fever Eyes denies drainage ENT denies: ear discharge, epistaxis, throat pain. Respiratory denies cough, denies shortness of breath, denies wheezing Cardiovascular denies chest pain, denies syncope Gastrointestinal denies abdominal pain, denies diarrhea, denies vomiting Genitourinary denies: dysuria, frequency, hesitancy, hematuria. Musculoskeletal see HPI, back pain, denies joint pain, denies joint swelling, denies neck pain Skin denies rash Psychiatric/Neurological denies headache, denies seizure Physical Exam Vital Signs Vital Signs Date Time Temp Pulse Resp B/P Pulse O2 O2 Flow FiO2 Ox Delivery Rate 11/04 2332 98.5 101 20 152/98 96 - WBC >12,000 or <4,000 or 10% bands? 2 or more SIRS Criteria Met? B/P:152/98 MAP:116 Creatinine >2.0? UA output<0.5ml/kg/hr for 2 hrs? Platelet count >100,000? Lactate >2.0mmol/1? INR >1.2 or PTT > than 60 sec? Evidence of Organ Dysfunction? Provider documented clinical suspician of infection? N Sepsis Criteria Count: 2 Sepsis Risk: Possible Sepsis Risk General Appearance no apparent distress Eye Exam - bilateral eye PERRL, bilateral eye EOMI Ear, Nose, Throat normal ENT inspection Neck supple Respiratory Status No: respiratory distress. Cardiovascular regular rate/rhythm Peripheral Pulses Pulses normal Yes Gastrointestinal soft Back no CVA tenderness, no vertebral tenderness Extremities normal inspection, no calf tenderness Strength 4 Upper Ext (L), 4 Upper Ext (R), 4 Lower Ext (L), 4 Lower Ext (R) Neurologic alert, floating operator II-XII nml as tested, no motor/sensory deficits Reflexes Reflexes normal No Mental status normal mood/affect Skin intact, no rash cons.w/shingles Medical Decision Making LABS/Meds/Orders Pt receiving controlled substance in ED? No Departure Departure Time of Disposition 8758 Disposition DC Home or Self Care(routine) Clinical Impression Primary Impression: Lumbar disc disease with radiculopathy Condition STABLE Referrals Tamir Anton MD (Family) Patient Instructions DI for Lumbar Radiculopathy Additional Instructions use meds and follow up as planned Discharge Counseling Counseled pt/family regarding diagnosis, medications/RX, follow up needs ED Critical Care Critical Care No at 8973
--- NOTE | 2017-11-04 23:53 | Emergency Room Report ---
History of Present Illness Time Seen by [id number] Presenting Problem in Triage Pt arrived:Walked Presenting Problem:C/O RIGHT HIP AND LEG PAIN FOR 2 DAYS. HX SPINAL STENOSIS. 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 N Clinical Suspician of Infection? N Mental Status: 1 - Regular (Normal Baseline) Sepsis Risk:Possible Sepsis Risk Have you (or family members/close friends) recently traveled outside the [place]? N If Yes, where/when: Have you had exposure to infectious disease within the past month? N TB? Other? Specify: Source patient, RN notes reviewed, family, old records Exam Limitations no limitations Comment pt with progressive rt lumbar pain to lat foot which has progressed over the last 2 weeks with no new trauma, no fever. no rash or cauda equina sx- he has been seen by surg and pcp and [facility] Cardiac Chest Pain Chest pain indicative of cardiac No Timing/Duration this evening Severity moderate ALLERGIES Coded Allergies: No Known Allergies (10/23/15) Home Medications Active Scripts Cyclobenzaprine Hcl (Flexeril) 0.5-1 TAB PO TIDP PRN muscle spasm #9 TAB Prov: 10/18/17 Reported Medications Bisoprolol Fumarate/Hydrochl (Ziac 5 Mg-6.25 Mg) 1 TAB PO DAILY DIGOXIN (Digox) 0.25 MG NG DAILY Albuterol-Ipratropium (Combivent Inhaler) 2 PUFFS IN TID Metformin HCL (Metformin) 500 MG PO BID Gabapentin (Neurontin 300MG) 300 MG PO BID PRN PAIN History Medical History General CAD? No Angina: No NC: No Hypertension? Yes Hyperlipidemia? No CHF? No DVT? No PE? No COPD? No Asthma? Yes Anemia? No GERD? Yes Gastric ulcers? No GI Bleed? No Hernia? No Thyroid Problems? No Hypothyroidism? No CVA? No Seizures? No Diabetes? Yes Insulin Dependent: No Insulin Pump: No Home FSBS? No Renal Insuffiency? No End Stage Renal Disease? No UTI? No Stones? No BPH? No GB Disease: Yes Nephritic Syndrome? No Asplenia? No Hepatitis? No Sickle Cell Disease? No Arthritis? No Migraines? No Cataracts? No Glaucoma? No MRSA? No HIV? No TB? No Anxiety? No Depression? No Cancer? No More? Yes Additional hx: SPINAL STENOSIS Immunization Hx DT/Tetanus < 1 YR AGO Surgical Hx Previous Surgery?Y RIGHT KNEE SURGERY HEART SURG[facility] BACK SURGERY 12/03 TONSILS 2010 Social History Smoking Hx Smoker: Current Every Day Smoker Tobacco: Yes Type Cigarettes Packs/day < 1 Pack Alcohol Alcohol: No Drugs none Review of Systems All Other Systems Reviewed and Negative Constitutional denies fever Eyes denies drainage ENT denies: ear discharge, epistaxis, throat pain. Respiratory denies cough, denies shortness of breath, denies wheezing Cardiovascular denies chest pain, denies syncope Gastrointestinal denies abdominal pain, denies diarrhea, denies vomiting Genitourinary denies: dysuria, frequency, hesitancy, hematuria. Musculoskeletal see HPI, back pain, denies joint pain, denies joint swelling, denies neck pain Skin denies rash Psychiatric/Neurological denies headache, denies seizure Physical Exam Vital Signs Vital Signs Date Time Temp Pulse Resp B/P Pulse O2 O2 Flow FiO2 Ox Delivery Rate 11/04 2332 98.5 101 20 152/98 96 - WBC >12,000 or <4,000 or 10% bands? 2 or more SIRS Criteria Met? B/P:152/98 MAP:116 Creatinine >2.0? UA output<0.5ml/kg/hr for 2 hrs? Platelet count >100,000? Lactate >2.0mmol/1? INR >1.2 or PTT > than 60 sec? Evidence of Organ Dysfunction? Provider documented clinical suspician of infection? N Sepsis Criteria Count: 2 Sepsis Risk: Possible Sepsis Risk General Appearance no apparent distress Eye Exam - bilateral eye PERRL, bilateral eye EOMI Ear, Nose, Throat normal ENT inspection Neck supple Respiratory Status No: respiratory distress. 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 No Departure Departure Time of Disposition [id number] Disposition DC Home or Self Care(routine) Clinical Impression Primary Impression: Lumbar disc disease with radiculopathy Condition STABLE Referrals Tamir Anton MD (Family) Patient Instructions DI for Lumbar Radiculopathy Additional Instructions use meds and follow up as planned Discharge Counseling Counseled pt/family regarding diagnosis, medications/RX, follow up needs ED Critical Care Critical Care No at [id number]
[2017-11-04 23:58] VITALS: BP 152/98
== END 2017-11-05 00:09 | disposition home or self-care (01) ==
LOC: ER 23:28
DX: M51.16 Intervertebral disc disorders with radiculopathy, lumbar region (principal); I10 Essential (primary) hypertension; J45.909 Unspecified asthma, uncomplicated; K21.9 Gastro-esophageal reflux disease without esophagitis; F17.210 Nicotine dependence, cigarettes, uncomplicated